=== PATIENT | male | born 1960 | race Caucasian/White ===

== ENCOUNTER 2019-09-18 12:26 | Observation (INO) ==
[2019-09-18] MEDS ORDERED: CeFAZolin Syr 2,000MG/20 ML 2,000 MG/20 ML SYRINGE IVPB ONE (12:47)
[2019-09-18] MEDS ORDERED: Albuterol 2.5 MG/3 ML NEBULIZER IH PRN (12:47)
[2019-09-18] MEDS: Ringers Solution, Lactated 1,000 ML IVC SCH ×2 (13:13→17:35)
[2019-09-18] MEDS ORDERED: Gabapentin 300 MG CAPSULE PO ONE (13:41)
[2019-09-18] MEDS ORDERED: Famotidine 20 MG/2 ML VIAL IVP ONE (13:41)
[2019-09-18] MEDS ORDERED: Acetaminophen IV 1,000 MG/100 ML INFUS..BTL IVPB ONE (13:41)
[2019-09-18] MEDS ORDERED: Neostigmine Methylsulfate 3 MG/3 ML SYRINGE ONE (14:29)
[2019-09-18] MEDS ORDERED: Ondansetron 4 MG/2 ML VIAL ONE (14:29)
[2019-09-18] MEDS ORDERED: *HR* Rocuronium Bromide 50 MG/5 ML VIAL ONE (14:29)
[2019-09-18] MEDS ORDERED: *HR* FentaNYL (PF) 100 MCG/2 ML VIAL ONE (14:29)
[2019-09-18] MEDS ORDERED: *HR* Midazolam HCl 2 MG/2 ML VIAL ONE (14:29)
[2019-09-18] MEDS ORDERED: Dexamethasone 4 MG/ML VIAL ONE (14:29)
[2019-09-18] MEDS ORDERED: Lidocaine -MPF 2% 2 ML VIAL ONE (14:29)
[2019-09-18] MEDS ORDERED: *HR* Propofol 200 MG/20 ML VIAL IVP ONE (14:29)
[2019-09-18] MEDS ORDERED: Ethanol\\Acetic Acid\\Na Ace\\Ben 1,000 ML IRRIG.SOLN IR ONE (14:40)
[2019-09-18] MEDS ORDERED: Propofol 500 MG/50 ML INFUS..BTL ONE (14:56)
[2019-09-18] MEDS ORDERED: Tranexamic Acid 1,000 MG/10 ML VIAL ONE (14:59)
[2019-09-18] MEDS ORDERED: EPHEDrine 50 MG/ML VIAL ONE ×2 (15:00→16:13)
[2019-09-18] MEDS ORDERED: *HR* PHENYLEPHRINE 1,000 MCG/10 ML SYRINGE IVP ONE ×2 (15:38→16:25)
[2019-09-18 17:54] LABS: Hematocrit 34.6 % (37.5-50.1)
[2019-09-18] MEDS ORDERED: Ondansetron 4 MG/2 ML VIAL IVP PRN (18:09)
[2019-09-18] MEDS ORDERED: MOM Conc 10 ML UD.LIQ PO PRN (18:09)
[2019-09-18] MEDS ORDERED: *HR* Promethazine 25 MG/ML VIAL IVP PRN (18:09)
[2019-09-18] MEDS ORDERED: Sennosides 8.6 MG TABLET PO PRN (18:09)
[2019-09-18] MEDS ORDERED: Ringers Solution, Lactated 1,000 ML IVC SCH (18:09)
[2019-09-18] MEDS ORDERED: Naloxone 0.4 MG/ML INJ IVP PRN (18:09)
[2019-09-18] MEDS: Ascorbic Acid 500 MG TABLET PO SCH (18:41)
[2019-09-18] MEDS: *HR* Metformin 500 MG TABLET PO SCH (20:14)
[2019-09-18] MEDS: *HR* OxyCODONE Immed Rel 5 MG TABLET PO PRN (20:15)
[2019-09-18] MEDS: ceFAZolin 2,000 MG in 0.9 % Sodium Chloride 100 ML IVPB SCH (23:22)
[2019-09-18] MEDS: HYDROcodone BIT/Homatropine 5 MG TABLET PO PRN (23:26)
[2019-09-19 01:43] LABS: Basophils % 0.2 %; Eosinophils % 0.1 %; Hematocrit 33.7 % (37.5-50.1); Hemoglobin 11.9 g/dL (12.9-16.9); Immature Granulocytes % 0.4 % (0-4); Lymphocytes # 0.8 K/mcL (0.6-4.6); Lymphocytes % 10.1 %; Mean Corpuscular HGB Conc 35.3 g/dL (31.6-35.5); Mean Corpuscular Volume 87.8 fL (83.0-100.0); Mean Platelet Volume 11.2 fL (9.4-12.4); Monocytes # 0.6 K/mcL (0.0-1.3); Monocytes % 7.2 %; Neutrophils # 6.6 K/mcL (1.6-8.9); Platelet Count 172 K/mcL (140-400); Red Blood Count 3.84 M/mcL (4.19-5.50); Red Cell Distribution Width 12.4 % (11.5-14.5); White Blood Count 8.1 K/mcL (4.3-11.1)
[2019-09-19 01:58] LABS: BUN/Creatinine Ratio 19 (6-26); Blood Urea Nitrogen 14 mg/dL (8-23); Calcium 8.6 mg/dL (8.6-10.3); Carbon Dioxide 25 mEq/L (23-29); Chloride 98 mEq/L (98-107); Glucose 162 mg/dL (70-105); Osmolality,Calculated 284 (280-300); Potassium 3.9 mEq/L (3.5-5.1); Sodium 135 mEq/L (136-145); eGFR For African Americans > 60 (> 60); eGFR For Non-African Americans > 60 (> 60)
[2019-09-19] MEDS: *HR* OxyCODONE Immed Rel 5 MG TABLET PO PRN ×3 (05:15→16:20)
[2019-09-19] MEDS ORDERED: MAGNESIUM OXIDE 1000 MG PO SCH (09:00)
[2019-09-19] MEDS ORDERED: NON-FORMULARY MEDICATION 1 EACH EACH (Potassium 99 MG) PO SCH (09:00)
[2019-09-19] MEDS ORDERED: TURMERIC 800 MG PO SCH (09:00)
[2019-09-19] MEDS: ceFAZolin 2,000 MG in 0.9 % Sodium Chloride 100 ML IVPB SCH (09:18)
[2019-09-19] MEDS: *HR* Metformin 500 MG TABLET PO SCH ×2 (09:18→19:53)
[2019-09-19] MEDS: Ascorbic Acid 500 MG TABLET PO SCH ×2 (09:18→16:20)
[2019-09-19] MEDS: Multivit/Ca/Min/Fe/FA 1 TAB TABLET PO SCH (09:19)
[2019-09-19] MEDS: Aspirin Enteric Coated 81 MG Tablet PO SCH (16:19)
[2019-09-19] MEDS: HYDROcodone BIT/Homatropine 5 MG TABLET PO PRN (19:53)
[2019-09-19] MEDS ORDERED: Dextrose Gel 15 GM/37.5 ML TUBE PO PRN ×2 (21:10)
[2019-09-19] MEDS ORDERED: D5% in Water 1,000 ML IVC PRN (21:10)
[2019-09-19] MEDS ORDERED: *HR* Dextrose 50 % in Water (Syg) 50 ML SYRINGE IVP PRN (21:10)
[2019-09-20 01:12] LABS: Basophils % 0.3 %; Eosinophils % 0.3 %; Hematocrit 35.7 % (37.5-50.1); Hemoglobin 12.4 g/dL (12.9-16.9); Immature Granulocytes % 0.4 % (0-4); Lymphocytes # 0.9 K/mcL (0.6-4.6); Lymphocytes % 11.4 %; Mean Corpuscular HGB Conc 34.7 g/dL (31.6-35.5); Mean Corpuscular Hemoglobin 30.5 pg (28.0-33.3); Mean Corpuscular Volume 87.9 fL (83.0-100.0); Mean Platelet Volume 10.7 fL (9.4-12.4); Monocytes # 0.8 K/mcL (0.0-1.3); Monocytes % 9.8 %; Neutrophils # 6.1 K/mcL (1.6-8.9); Platelet Count 180 K/mcL (140-400); Red Blood Count 4.06 M/mcL (4.19-5.50); Red Cell Distribution Width 12.5 % (11.5-14.5); Segmented Neutrophils % 77.8 %; White Blood Count 7.8 K/mcL (4.3-11.1)
[2019-09-20 01:31] LABS: BUN/Creatinine Ratio 18 (6-26); Blood Urea Nitrogen 10 mg/dL (8-23); Calcium 8.5 mg/dL (8.6-10.3); Carbon Dioxide 24 mEq/L (23-29); Chloride 103 mEq/L (98-107); Glucose 153 mg/dL (70-105); Osmolality,Calculated 280 (280-300); Potassium 3.5 mEq/L (3.5-5.1); Sodium 134 mEq/L (136-145); eGFR For African Americans > 60 (> 60); eGFR For Non-African Americans > 60 (> 60)
[2019-09-20 07:11] VITALS: BP 150/72
[2019-09-20] MEDS ORDERED: Insulin LISPRO 300 UNITS/3 ML VIAL SQ SCH (08:00)
[2019-09-20] MEDS: Aspirin Enteric Coated 81 MG Tablet PO SCH (08:35)
[2019-09-20] MEDS: Multivit/Ca/Min/Fe/FA 1 TAB TABLET PO SCH (08:35)
[2019-09-20] MEDS: *HR* Metformin 500 MG TABLET PO SCH (08:35)
[2019-09-20] MEDS: Ascorbic Acid 500 MG TABLET PO SCH (08:35)
[2019-09-20] MEDS: HYDROcodone BIT/Homatropine 5 MG TABLET PO PRN (08:35)
== END 2019-09-20 12:34 | disposition home health service (06) ==
LOC: 3NENU 12:26 → SAMDAY 12:26 → 3NENU 18:08
PROVIDERS: ADMIT Orthopaedic Surgery; ATTEND Orthopaedic Surgery